=== PATIENT | male | born 1935 | race Caucasian/White ===

== ENCOUNTER 2017-12-24 23:03 | Inpatient (IN) | payer OTHER ==
[~2017-12-24] VITALS: Ht 185.4 cm; Wt 940.3 kg
[~2017-12-24 23:03] MED LIST: ASA-EC81 MG PO; ATIVAN2 M1; DITROPAN X15 MG/BOTT; DITROPAN X15 MG/BOTT PO; ENALAPRIL MALEAT5 MG; GLUCOPHAGE XR500 MG; LIPITOR20 MG PO; LORAZEPAM2 MG PO; METFORMIN HCL500 MG; METFORMIN HCL500 MG PO; PLAVIX 75MG PO; PLAVIX75 MG PO; TAMS0.4C; TAMS0.4C PO; TOLTERODINE TART4 MG; TOPROL XL50 M1 PO; VASOTEC10 MG; VASOTEC5 MG PO
== END 2018-01-05 16:37 | disposition home or self-care (01) | DRG 291 ==
LOC: ER 23:03 → SEC-K 12-25 09:44 → MEDI 12-25 09:44
PROC: 4A12X4Z Monitoring of Cardiac Electrical Activity, External Approach (ICD-10-PCS; principal; 2017-12-25)
PROC: BW24ZZZ Computerized Tomography (CT Scan) of Chest and Abdomen (ICD-10-PCS; 2017-12-25)
PROC: B246ZZZ Ultrasonography of Right and Left Heart (ICD-10-PCS; 2017-12-25)
PROC: 3E0F7GC Introduction of Other Therapeutic Substance into Respiratory Tract, Via Natural or Artificial Opening (ICD-10-PCS; 2017-12-25)
PROC: BT43ZZZ Ultrasonography of Bilateral Kidneys (ICD-10-PCS; 2017-12-25)
PROC: 30233N1 Transfusion of Nonautologous Red Blood Cells into Peripheral Vein, Percutaneous Approach (ICD-10-PCS; 2017-12-26)
PROC: BW28ZZZ Computerized Tomography (CT Scan) of Head (ICD-10-PCS; 2018-01-01)
PROC: 4A033R1 Measurement of Arterial Saturation, Peripheral, Percutaneous Approach (ICD-10-PCS; 2018-01-02)
DX: I11.0 Hypertensive heart disease with heart failure (principal); J18.9 Pneumonia, unspecified organism; G93.41 Metabolic encephalopathy; N17.8 Other acute kidney failure; J90 Pleural effusion, not elsewhere classified; N13.39 Other hydronephrosis; N39.0 Urinary tract infection, site not specified; I48.0 Paroxysmal atrial fibrillation; E11.65 Type 2 diabetes mellitus with hyperglycemia; I25.10 Atherosclerotic heart disease of native coronary artery without angina pectoris; R09.02 Hypoxemia; R31.0 Gross hematuria; I50.33 Acute on chronic diastolic (congestive) heart failure; N40.1 Benign prostatic hyperplasia with lower urinary tract symptoms; R33.8 Other retention of urine; Z78.1 Physical restraint status; F03.90 Unspecified dementia, unspecified severity, without behavioral disturbance, psychotic disturbance, mood disturbance, and anxiety; D64.89 Other specified anemias

== ENCOUNTER 2018-01-11 22:26 | Emergency (ER) | payer OTHER ==
[~2018-01-11] VITALS: Ht 185.4 cm; Wt 12.2 kg
[2018-01-11] MEDS ORDERED: FOLIC ACID1 MG (22:38)
[2018-01-11] MEDS ORDERED: ATORVASTATIN CA20 MG (22:39)
[2018-01-11] MEDS ORDERED: GABAPENTIN300 MG (22:39)
[2018-01-12] MEDS ORDERED: CIPRO500 MG PO (08:24)
== END 2018-01-12 18:23 ==
LOC: ER 22:26
DX: N39.0 Urinary tract infection, site not specified (principal); R31.0 Gross hematuria

== ENCOUNTER 2019-08-06 00:52 | Inpatient (IN) | payer OTHER ==
[~2019-08-06] VITALS: Ht 185.4 cm; Wt 117.9 kg
[~2019-08-06 00:52] MED LIST changes: +ATORVASTATIN CA20 MG; +CIPRO500 MG PO; +FOLIC ACID1 MG; +GABAPENTIN300 MG
--- NOTE | 2019-08-06 01:09 | NUR ---
PTE SE RECIBE POR DIFICULTAD RESPIRATORIA REFIERE PARAMEDICO Y PERSONA QUE LO CUIDA.
[2019-08-06] MEDS ORDERED: MEMANTINE HCL10 MG (01:15)
[2019-08-06] MEDS ORDERED: ARICEPT10 MG (01:15)
[2019-08-06] MEDS ORDERED: [UNRECOGNIZED DRUG - OTHER] (01:16)
[2019-08-06] MEDS ORDERED: TAMS0.4C (01:17)
[2019-08-06] MEDS ORDERED: QUETIAPINE 50 MG (01:18)
[2019-08-06] MEDS ORDERED: BUSPIRONE 5 MG (01:19)
[2019-08-06] MEDS ORDERED: QUETIAPINE FUM100 MG (01:20)
[2019-08-06] MEDS ORDERED: DOCUSATE (01:21)
[2019-08-06] MEDS ORDERED: TRAZODONE HCL50 MG (01:21)
[2019-08-06] MEDS ORDERED: [UNRECOGNIZED DRUG - OTHER] (01:23)
[2019-08-06] MEDS ORDERED: VITAMIN D1000 UNIT (01:24)
[2019-08-06] MEDS ORDERED: SE-TAN PLUS CA1 EACH (01:24)
[2019-08-06] MEDS ORDERED: MELATONIN3 M1 (01:25)
--- NOTE | 2019-08-06 03:55 | NUR ---
SE RECIBE PTE ALERTA Y ORIENTADO EN PERSONA EN COMPANIA DE PARAMEDICOS Y CUIDADOR EL CUAL REFIERE QUE PTE PRESENTA DIFICULTAD AL HABLAR Y RESPIRATORIA DESDE ESTA MADRUGADA. INDICA UBICAR A PTE EN UNIDAD DE CRITICO. SE UBICA A PTE EN CAMA CON BARANDAS ELEVADAS, SE CONECTA A MONITOR CARDIACO Y OXIMETRIA DE PULSO.
--- NOTE | 2019-08-06 05:24 | NUR ---
SE COLOCA A PACIENTE EN CAMA CON BARANDAS SEGURAS Y ELEVADAS. SE CONECTA A MONITOR CARDIACO CON OXIMETRIA DE PULSO. SE CANALIZA EN MANO IZQUIERDA CON AREA DE VENOPUNCION CARA DE EDEMA O ENROJECIMIENTO. SE LEBRON MUESTRAS DE LABORATORIO ORDENADAS. SE REMUEVE ALFARO Y SE INSERTA NUEVO BAJO MEDIDAS ESTERILES. SE REALIZA EKG.
--- NOTE | 2019-08-06 07:21 | NUR ---
SE RECIBE PT ALERTA, ACTIVO, DESORIENTADO EN TIEMPO Y LUGAR, EN UNIDAD DE ICU2 CONECTADO A MONITOR CARDIACO Y OXIMETRIA DE PULSO CONTINUA. PT ASISTIDO POR CANULA NASAL A 3FCITH3 94% CON BUEN PATRON RESPIRATORIO. PT RECIBIENDO 0.45SS BAJANDO A 75ML/HR POR VENOPUNCION EN MANO LT. PT CON ABDOMEN BLANDO, DEPRESIBLE, CON ALFARO DRENANDO A GRAVEDAD ORINA AMARILLO OSCURO. SE LE PROVEE COMODIDAD, ,PT CON PIEL TIBIA AL TACTO. AL MOMENTO NO PRESENTAEDEMA EN EXTREMIDADES SUPERIORES E INFERIORES. SE LE ORIENTA OSBRE TX EN UNIDAD Y SE MANTIENE EN OBSERVACION POR CAMBIOS. 0730 PT PRESENTA BP 77/50 MAP 68. SE NOT[address]ICA A [address] LINN QUIEN ORDENA FLUID CHALLENGE DE 250 ML 0.9NSS. SE ADMINISTRA MEDICAMENTO PEDRO PRESCRITO Y SE MANTIENE A PT EN OBSERVACION POR CAMBIOS.
--- NOTE | 2019-08-06 07:46 | NUR ---
SE RE EVALUA BP DE PTE 119/64, SE MANTIENE EN OBSERVACION POR CAMBIOS.
--- NOTE | 2019-08-06 10:02 | NUR ---
SE PROVEE ASEO PERSONAL CON HIBICLENS A PTE. SE LE PROVEE COMODIDAD Y SE MANTIENE EN OBSERVACION POR CAMBIOS, EN ESPERA DE ADMISION.
[2019-08-09] MEDS ORDERED: DOCUSATE SODIU100 MG (15:41)
[2019-08-09] MEDS ORDERED: PLAVIX75 MG PO (15:42)
[2019-08-09] MEDS ORDERED: BUSPIRONE HCL7.5 MG (15:42)
[2019-08-09] MEDS ORDERED: QUETIAPINE FUMA50 MG (15:43)
[2019-08-09] MEDS ORDERED: VASOFLEX D1 CA1 EACH (15:43)
[2019-08-10] MEDS ORDERED: METOPROLOL TART50 MG PO (14:16)
[2019-08-10] MEDS ORDERED: ELIQUIS2.5 MG PO (14:16)
== END 2019-08-10 22:41 | disposition home or self-care (01) | DRG 65 ==
LOC: ER 00:52 → ICU-2 10:03 → MEDJ 08-09 14:15
PROVIDERS: ADMIT Internal Medicine
PROC: B345ZZZ Ultrasonography of Bilateral Common Carotid Arteries (ICD-10-PCS; principal; 2019-08-06)
PROC: B348ZZZ Ultrasonography of Bilateral Internal Carotid Arteries (ICD-10-PCS; 2019-08-06)
PROC: B246ZZZ Ultrasonography of Right and Left Heart (ICD-10-PCS; 2019-08-06)
PROC: BW28ZZZ Computerized Tomography (CT Scan) of Head (ICD-10-PCS; 2019-08-06)
PROC: B030ZZZ Magnetic Resonance Imaging (MRI) of Brain (ICD-10-PCS; 2019-08-06)
PROC: 4A12X4Z Monitoring of Cardiac Electrical Activity, External Approach (ICD-10-PCS; 2019-08-09)
DX: I63.231 Cerebral infarction due to unspecified occlusion or stenosis of right carotid arteries (principal); I50.22 Chronic systolic (congestive) heart failure; N17.8 Other acute kidney failure; I13.0 Hypertensive heart and chronic kidney disease with heart failure and stage 1 through stage 4 chronic kidney disease, or unspecified chronic kidney disease; R65.10 Systemic inflammatory response syndrome (SIRS) of non-infectious origin without acute organ dysfunction; R47.01 Aphasia; R31.0 Gross hematuria; I11.0 Hypertensive heart disease with heart failure; I08.3 Combined rheumatic disorders of mitral, aortic and tricuspid valves; I48.0 Paroxysmal atrial fibrillation; I25.10 Atherosclerotic heart disease of native coronary artery without angina pectoris; E11.22 Type 2 diabetes mellitus with diabetic chronic kidney disease; E11.65 Type 2 diabetes mellitus with hyperglycemia; B95.2 Enterococcus as the cause of diseases classified elsewhere; R29.706 NIHSS score 6; N18.3 Chronic kidney disease, stage 3 (moderate); Z79.4 Long term (current) use of insulin; Z79.01 Long term (current) use of anticoagulants
CPT/HCPCS: 70551